=== PATIENT | female | born 1980 | race Two or more races ===

== ENCOUNTER 2018-02-28 17:35 | Inpatient (IN) | payer OTHER ==
[2018-02-28] MEDS ORDERED: DEXTROSE 5%-LACTATED RINGERS 500 ML IV SCH (21:40)
[2018-02-28 22:28] LABS: BASO % 0.3 % (0-2.0); HEMATOCRIT 32.8 % (32.4-45.2); HEMOGLOBIN 11.1 GM/dL (10.7-15.3); MCH 30.9 pg (25.7-33.7); MCHC 33.7 g/dl (32.0-36.0); MEAN CELL VOLUME 91.5 fl (80-96); MEAN PLT VOLUME 9.6 fl (7.5-11.1); MONO % 2.8 % (3.8-10.2); NEUT % 80.9 % (42.8-82.8); PLATELET COUNT 198 K/MM3 (134-434); RBC 3.58 M/mm3 (3.60-5.2); WHITE BLOOD COUNT 10.6 K/mm3 (4.0-10.0)
--- NOTE | 2018-02-28 22:38 | HP ---
Past Medical History - Primary Care Physician PCP:: Alonso Mejia - Admission Chief Complaint: 33,5 weeks, epigastric pain History of Present Illness: 37 yo f g 5 [id number] edc by tato 04/11/18 , c/o sever epigastric pain for 3 days , pain scale 10, , ssen in L&D 2 days ago with same c/o , her gallbladder sono , renal sono normal, c/o v/v . unable to eat ,or drinks,no fever , previous hx of lap band surgery. History Source: Patient Limitations to Obtaining History: Language Barrier - Past Medical History ...: 5 ...Para: 3 ...Term: 3 ...: 0 ...Spon : 1 ...EDC by Tato: 04/11/18 Additional OB History: one 2004. c/s 2007, 2008 - Past Surgical History Past Surgical History: Yes: . No: Bariatric Surgery (lap band 10 yeras ago) Hx Myomectomy: No Hx Transabdominal Cerclage: No - Smoking History Smoking history: Never smoked Have you smoked in the past 12 months: No - Alcohol/Substance Use Hx Alcohol Use: No History of Substance Use: reports: None - Social History History of Recent Travel: Yes (transfered care from [place] ) Home Medications - Allergies Allergies/Adverse Reactions: Allergies Allergy/AdvReac Type Severity Reaction Status Date / Time No Known Drug Allergies Allergy Verified 02/28/18 18:07 peas Allergy Hives Verified 02/28/18 18:07 - Home Medications Home Medications: Ambulatory Orders Vit/Iron Fum/Folic AC [ Tablet] 1 tab PO DAILY 02/26/18 Review of Systems - Review of Systems Constitutional: reports: Weakness Eyes: reports: No Symptoms HENT: reports: No Symptoms Neck: reports: No Symptoms Cardiovascular: reports: No Symptoms Respiratory: reports: No Symptoms Gastrointestinal: reports: Abdominal Pain, Bloating, Dysphagia, Indigestion, Nausea, Vomiting Genitourinary: reports: No Symptoms Breasts: reports: No Symptoms Reported Musculoskeletal: reports: No Symptoms Integumentary: reports: No Symptoms Neurological: reports: No Symptoms Endocrine: reports: No Symptoms Psychiatric: reports: No Symptoms Physical Exam - Maternity Vital Signs: Vital Signs Temperature 97.9 F 02/28/18 19:45 Pulse Rate 67 02/28/18 19:45 Respiratory Rate 20 02/28/18 19:45 Blood Pressure 122/75 02/28/18 19:45 O2 Sat by Pulse Oximetry (%) Constitutional: Yes: Well Nourished, No Distress, Calm Eyes: Yes: WNL, Conjunctiva Clear, EOM Intact HENT: Yes: WNL, Atraumatic, Normocephalic Neck: Yes: WNL, Supple, Trachea Midline Cardiovascular: Yes: WNL, Regular Rate and Rhythm Breast(s): Yes: WNL - Abdominal Exam/OB Fundal Height: 34 Number of Fetuses: Single Presentation: Vertex Contractions: No Intensity: Unaware Monitor Mode: External Heart Rate Location: [facility] Category: I Accelerations: Uniform Decelerations: None - Vaginal Exam/OB Vaginal Bleediing: No Speculum Exam: No Dilatation (cm): closed Effacement (%): 0 Amniotic Membrane Status: Intact Presentation: Vertex/Position Station: -2 - Physical Exam Musculoskeletal: Yes: WNL Extremities: Yes: WNL Edema: LLE: Trace, RLE: Trace Deep Tendon Reflex Grade: Normal +2 ...Motor Strength: WNL Psychiatric: Yes: WNL - Labs Lab Results: CBC, BMP 02/28/18 22:10 Hemorrhage Risk Assessment - Risk Factors Medium Risk Factors: Yes: Prior , uterine surgery,or multiple laparotomies Risk Score: 1 Risk Level: Medium Risk Problem List - Problems (1) Intractable epigastric abdominal pain Code(s): R10.13 - EPIGASTRIC PAIN (2) LAP-BAND surgery status Code(s): Z98.84 - BARIATRIC SURGERY STATUS (3) Previous section complicating Code(s): O34.219 - MATERNAL CARE FOR UNSP TYPE SCAR FROM PREVIOUS DEL (4) Advanced maternal age (AMA) in Code(s): RNB5038 - (5) with 33 completed weeks gestation Code(s): Z3A.33 - 33 WEEKS GESTATION OF Assessment/Plan admit, iv hydration transfer to [facility]
[2018-02-28] MEDS ORDERED: DEXTROSE 5%-LACTATED RINGERS 1,000 ML IV SCH (22:40)
[2018-02-28 22:42] LABS: INR 0.97 (0.82-1.09)
[2018-02-28 22:45] LABS: ACTIVATED PTT 21.6 SECONDS (26.9-34.4)
[2018-02-28 23:03] VITALS: BMI 26.4
[2018-02-28] MEDS ORDERED: ONDANSETRON 4 MG/2 ML VIAL ONE (23:05)
[2018-02-28 23:06] LABS: AMYLASE 98 U/L (25-115); LIPASE 83 U/L (73-393)
[2018-02-28] MEDS ORDERED: ONDANSETRON 4 MG/2 ML VIAL IVPB PRN (23:06)
[2018-02-28 23:12] LABS: ALBUMIN 2.6 g/dl (3.4-5.0); ALK PHOS 106 U/L (45-117); ANION GAP 11 (8-16); BILIRUBIN,TOTAL 0.4 mg/dL (0.2-1.0); BLOOD UREA NITROGEN 8 mg/dL (7-18); CALCIUM 8.1 mg/dL (8.5-10.1); CHLORIDE 106 mmol/L (98-107); CO2 21 mmol/L (21-32); CREATININE 0.5 mg/dL (0.55-1.02); GLUCOSE,RANDOM 72 mg/dL (74-106); POTASSIUM 3.7 mmol/L (3.5-5.1); SGOT/AST 15 U/L (15-37); SGPT/ALT 15 U/L (12-78); SODIUM 138 mmol/L (136-145); TOT PROT 6.3 g/dl (6.4-8.2)
[2018-02-28] MEDS ORDERED: FAMOTIDINE 20 MG/50 ML IVPB 20 MG/50 ML MG IVPB SCH ×2 (23:15)
[2018-03-01 00:52] VITALS: BP 125/72; PULSE 60; TEMP 98
[2018-03-01 00:59] LABS: URINE APPEARANCE CLEAR; URINE BILIRUBIN NEGATIVE (<2.0 mg/dL); URINE COLOR YELLOW; URINE GLUCOSE (UA) NEGATIVE (NEGATIVE); URINE KETONE 2+ (NEGATIVE); URINE LEUK ESTERASE NEGATIVE (NEGATIVE); URINE NITRITE NEGATIVE (NEGATIVE); URINE UROBILINOGEN NEGATIVE mg/dL (0.2-1.0)
[2018-03-01 01:01] LABS: URINE PROTEIN 2+ (NEGATIVE)
[2018-03-01 01:05] LABS: COCAINE, UR NEGATIVE ng/ml (CUTOFF=300); METHADONE, UR NEGATIVE ng/ml (CUTOFF=300); OPIATES, URI NEGATIVE ng/ml (CUTOFF=300); PHENCYCLIDINE,URINE NEGATIVE ng/ml (CUTOFF=25); URINE AMPHETAMINES NEGATIVE ng/ml (CUTOFF=500); URINE BARBITURATES NEGATIVE ng/ml (CUTOFF=200); URINE BENZODIAZEPINES NEGATIVE ng/ml (CUTOFF=200)
[2018-03-01 01:15] LABS: EPI CELLS RARE /HPF (FEW); URINE MUCUS MANY
[2018-03-02 06:10] LABS: HBsAG SCREEN Negative (Negative)
== END 2018-03-01 00:35 | disposition short-term general hospital (02) | DRG 566 ==
LOC: JDEL 17:35 → JLDR 21:40
PROVIDERS: ADMIT Obstetrics & Gynecology; ATTEND Obstetrics & Gynecology
DX: O99.89 Other specified diseases and conditions complicating pregnancy, childbirth and the puerperium (principal); O34.211 Maternal care for low transverse scar from previous cesarean delivery; Z3A.33 33 weeks gestation of pregnancy; R10.13 Epigastric pain; Z98.84 Bariatric surgery status
CPT/HCPCS: 36415; 80053; 80307; 81003; 81015; 82150; 83690; 85025; 85610; 85730; 86593; 86762; 86850; 86900; 86901; 87340; 87389